=== PATIENT | female | born 1945 | race Caucasian/White ===

== ENCOUNTER → 2018-08-19 11:10 | Emergency (ER) | payer MEDICARE ==
[2018-08-19 11:19] VITALS: BP 149/100
--- NOTE | 2018-08-19 12:39 | ED ---
Skin Complaint - HPI Summary HPI Summary: Patient is a 72-year-old otherwise healthy female who presents to the ED with a right distal finger erythema, tenderness and swelling. She states yesterday she had a splinter go into the ulnar side of the nailbed. Her was able to dislodge this foreign body and she immediately soaked in warm water. However despite these measures, she awoke with swelling, pain and erythema to the area. She denies any drainage. It is exquisitely tender to palpation. There is no loculated areas or fluctuance noted. She has never had a paronychia or abscess in the past. She believes she may have gotten all of the foreign body, but is unsure. She denies any fevers, sweats, chills. She denies any other concerns at this time. - History of Current Complaint Chief Complaint: EDExtremityUpper Time Seen by Provider: 08/19/18 11:25 Stated Complaint: SPLINTER IN RIGHT PINKY PER PT Hx Obtained From: Patient Onset/Duration: Started Hours Ago Skin Exposure Onset/Duration: Hours Ago Timing: Constant Onset Severity: Moderate Current Severity: Moderate Pain Intensity: 7 Pain Scale Used: 0-10 Numeric Skin Location: Other: - finger/little Aggravating Symptom(s): Nothing Alleviating Symptom(s): Nothing Associated Signs & Symptoms: Negative Related History: Trauma - Allergy/Home Medications Allergies/Adverse Reactions: Allergies Allergy/AdvReac Type Severity Reaction Status Date / Time No Known Allergies Allergy Verified 08/19/18 11:19 PMH/Surg Hx/FS Hx/Imm Hx Previously Healthy: Yes Cardiovascular History: Reports: Hx Hypertension Denies: Other Cardiovascular Problems/Disorders Respiratory History: Denies: Other Respiratory Problems/Disorders Musculoskeletal History: Reports: Hx Arthritis - RIGHT GREAT TOE Sensory History: Reports: Hx Contacts or Glasses - READING GLASS Denies: Hx Hearing Aid Opthamlomology History: Reports: Hx Contacts or Glasses - READING GLASS Psychiatric History: Reports: Hx Anxiety - ON MEDS, Hx Depression - ON MEDS - Cancer History Hx Chemotherapy: No Hx Radiation Therapy: No - Surgical History Surgery Procedure, Year, and Place: LEFT BREAST BIOPSY, OFFICE Hx Anesthesia Reactions: No - LOCAL ANESTHESIA - Immunization History Hx Pertussis Vaccination: No Immunizations Up to Date: Yes Infectious Disease History: No Infectious Disease History: Denies: Traveled Outside the [place] in Last 30 Days - Social History Occupation: Unemployed Lives: With Family Alcohol Use: Weekly Hx Substance Use: No Substance Use Type: Reports: None Hx Tobacco Use: Yes Smoking Status (MU): Light Every Day Tobacco Smoker Amount Used/How Often: LESS THAN 1/2 PPD Length of Time of Smoking/Using Tobacco: 30 YEARS Have You Smoked in the Last Year: Yes Review of Systems Constitutional: Negative Negative: Fever, Chills, Fatigue, Skin Diaphoresis Negative: Palpitations, Chest Pain Negative: Shortness Of Breath, Cough Positive: Arthralgia - right distal tip of small finger, Myalgia Positive: Other - erythema and swelling of distal tip of finger Neurological: Negative All Other Systems Reviewed And Are Negative: Yes Physical Exam Triage Information Reviewed: Yes Vital Signs On Initial Exam: Initial Vitals Temp Pulse Resp BP Pulse Ox 98.0 F 72 16 149/100 98 08/19/18 11:17 08/19/18 11:17 08/19/18 11:17 08/19/18 11:17 08/19/18 11:17 Vital Signs Reviewed: Yes Appearance: Positive: Well-Appearing, Well-Nourished Skin: Positive: Warm, Skin Color Reflects Adequate Perfusion, Other - swelling and erythema to the distal tip of the little finger Head/Face: Positive: Normal Head/Face Inspection Neck: Positive: Supple, No Lymphadenopathy Respiratory/Lung Sounds: Positive: Clear to Auscultation - she is, Breath Sounds Present Cardiovascular: Positive: Pulses are Symmetrical in both Upper and Lower Extremities Musculoskeletal: Positive: Pain @ - distal tip of the finger Neurological: Positive: Speech Normal Psychiatric: Positive: Normal, Affect/Mood Appropriate Diagnostics - Vital Signs Vital Signs Temp Pulse Resp BP Pulse Ox 08/19/18 11:17 98.0 F 72 16 149/100 98 - Laboratory Lab Statement: Any lab studies that have been ordered have been reviewed, and results considered in the medical decision making process. Course/Dx - Course Course Of Treatment: Patient is evaluated for erythema, swelling and pain to palpation of the distal tip of the right little finger. She was able to dislodge a splinter which was placed yesterday. She immediately soaked the area with warm water, however despite these measures she is noting these symptoms. She denies any fevers, sweats, chills. A physical examination, there is no area of fluctuance or loculated area which would require drainage. There is no white area or swelling directly around the nail bed to suggest a paronychia. This appears to be a foreign body insult to the distal finger which caused swelling and now creating an infection. She will be placed on Keflex 3 times daily 7 days. I have advised she follow up with her PCP if symptoms continue, however she understands to return to the ED if there is any drainable fluid collection or area or if she develops any fevers. - Differential Diagnoses - Skin Complaint Differential Diagnoses: Other - cellulitis, paronychia, foreign body, abscess - Diagnoses Provider Diagnoses: Infected finger Discharge - Sign-Out/Discharge Documenting (check all that apply): Patient Departure Patient Received Moderate/Deep Sedation with Procedure: No - Discharge Plan Condition: Stable Disposition: HOME Prescriptions: Cephalexin CAP* [Keflex CAP*] 500 mg PO TID #21 cap MDD 3 Patient Education Materials: Soft Tissue Foreign Body (ED), Paronychia (ED) Referrals: Pravin Matamoros MD [Primary Care Provider] - Additional Instructions: He has been diagnosed with a soft tissue foreign body, likely removed Please take Keflex 3 times daily 7 days, take her first dose now, your second dose at around 5 or 6 PM and her third dose right before bed Take a probiotic on opposite schedule to prevent any diarrhea Please follow-up with your PCP as needed if symptoms continue You may use ice to the area for comfort If you develop an opening of drainage, please use heat instead - Billing Disposition and Condition Condition: STABLE Disposition: Home
== END | disposition home or self-care (01) ==
LOC: ED 11:10
DX: L08.9 Local infection of the skin and subcutaneous tissue, unspecified (principal); I10 Essential (primary) hypertension; F41.9 Anxiety disorder, unspecified; F32.9 Major depressive disorder, single episode, unspecified; F17.210 Nicotine dependence, cigarettes, uncomplicated; Z79.899 Other long term (current) drug therapy
CPT/HCPCS: 99282

== ENCOUNTER 2018-08-27 15:10 | Emergency (ER) | payer MEDICARE ==
[2018-08-27] MEDS ORDERED: Tetan/Diph/Pertus SYR(Tdap)* 0.5 ML SYR(BOOSTRIX) use SYR IM ONE (15:39)
[2018-08-27 16:46] VITALS: BP 133/81
--- NOTE | 2018-08-28 05:56 | ED ---
Laceration/Wound HPI - HPI Summary HPI Summary: Pt. is a 72 y.o female who presents to the ER for finger laceration that occurred today. Pt. states she was reaching up to a metal shelf when a sharp edge cut finger. Unknown last tetanus immunization. Sxs are mild in severity. No current modifying factors. - History of Current Complaint Stated Complaint: RT POINTER FINGER LAC PER PT Time Seen by Provider: 08/27/18 15:27 Hx Obtained From: Patient Pain Intensity: 2 Pain Scale Used: 0-10 Numeric - Allergy/Home Medications Allergies/Adverse Reactions: Allergies Allergy/AdvReac Type Severity Reaction Status Date / Time No Known Allergies Allergy Verified 08/19/18 11:19 PMH/Surg Hx/FS Hx/Imm Hx Previously Healthy: Yes Cardiovascular History: Reports: Hx Hypertension Denies: Other Cardiovascular Problems/Disorders Respiratory History: Denies: Other Respiratory Problems/Disorders Musculoskeletal History: Reports: Hx Arthritis - RIGHT GREAT TOE Sensory History: Reports: Hx Contacts or Glasses - READING GLASS Opthamlomology History: Reports: Hx Contacts or Glasses - READING GLASS Psychiatric History: Reports: Hx Anxiety - ON MEDS, Hx Depression - ON MEDS - Cancer History Hx Chemotherapy: No Hx Radiation Therapy: No - Surgical History Surgery Procedure, Year, and Place: LEFT BREAST BIOPSY, OFFICE Hx Anesthesia Reactions: No - LOCAL ANESTHESIA - Immunization History Date of Tetanus Vaccine: unknown Infectious Disease History: No Infectious Disease History: Denies: Traveled Outside the [place] in Last 30 Days - Family History Known Family History: Positive: Non-Contributory - Social History Occupation: Retired Lives: With Family Alcohol Use: Weekly Hx Substance Use: No Substance Use Type: Reports: None Hx Tobacco Use: Yes Smoking Status (MU): Light Every Day Tobacco Smoker Amount Used/How Often: LESS THAN 1/2 PPD Length of Time of Smoking/Using Tobacco: 30 YEARS Have You Smoked in the Last Year: Yes Review of Systems Musculoskeletal: Negative Positive: Other - laceration to right second digit Negative: Weakness, Paresthesia, Numbness All Other Systems Reviewed And Are Negative: Yes Physical Exam Triage Information Reviewed: Yes Vital Signs On Initial Exam: Initial Vitals Temp Pulse Resp BP Pulse Ox 98.2 F 75 16 133/87 96 08/27/18 15:17 08/27/18 15:17 08/27/18 15:17 08/27/18 15:17 08/27/18 15:17 Vital Signs Reviewed: Yes Appearance: Positive: Well-Appearing - Pt. sitting on bed in NAD. present. Skin: Positive: Warm, Dry Head/Face: Positive: Normal Head/Face Inspection Eyes: Positive: Normal, EOMI Neck: Positive: Supple Musculoskeletal: Positive: Other - 1cm superficial triangular shaped skin flap noted to the distal aspect of second digit of right hand on the volar aspect. No active bleeding. Full ROM of digit. Neurological: Positive: Normal, CN Intact II-III Psychiatric: Positive: Affect/Mood Appropriate Procedures - Procedure Summary Procedure Summary: Wound care: 1cm triangular shaped skin flap to distal 2nd digit on right hand was clean with hibiclens. 3 layers of dermabond applied with good approximation. Diagnostics - Vital Signs Vital Signs Temp Pulse Resp BP Pulse Ox 08/27/18 16:45 97.6 F 65 18 133/81 96 08/27/18 15:17 98.2 F 75 16 133/87 96 - Laboratory Lab Statement: Any lab studies that have been ordered have been reviewed, and results considered in the medical decision making process. Laceration Repair Course/Dx - Course Course Of Treatment: Pt. presenting for superficial skin flap that was repaired as noted above. Tetanus updated. To keep wound clean and dry. To f.u with pcp or return to ER for redness, swelling, or drainage from wound. Pt. understands and agrees with plan. - Differential Dx Differental Diagnoses: Abrasion, Avulsion, Laceration - Clinical Impression Provider Diagnoses: Laceration Discharge - Sign-Out/Discharge Documenting (check all that apply): Patient Departure Patient Received Moderate/Deep Sedation with Procedure: No - Discharge Plan Condition: Good Disposition: HOME Patient Education Materials: Skin Adhesive Care (ED) Referrals: Delfina Mcclendon MD [Primary Care Provider] - Additional Instructions: Keep wound clean and dry Return to ER for redness, swelling or drainage from wound - Billing Disposition and Condition Condition: GOOD Disposition: Home
== END 2018-08-27 16:45 | disposition home or self-care (01) ==
LOC: ED 15:10
DX: S61.210A Laceration without foreign body of right index finger without damage to nail, initial encounter (principal); W26.8XXA Contact with other sharp object(s), not elsewhere classified, initial encounter; Y92.9 Unspecified place or not applicable; Z23 Encounter for immunization; I10 Essential (primary) hypertension; M19.071 Primary osteoarthritis, right ankle and foot; F41.9 Anxiety disorder, unspecified; F32.9 Major depressive disorder, single episode, unspecified; F17.200 Nicotine dependence, unspecified, uncomplicated
CPT/HCPCS: 12001; 90471; 90715; 99282